=== PATIENT | male | born 1955 | race American Indian/Alaskan Native ===

== ENCOUNTER 2018-03-28 10:21 | Day surgery (SDC) | payer BC ==
[2018-03-28] MEDS ORDERED: WATER FOR IRRIG STERILE ONE (10:35)
[2018-03-28] MEDS ORDERED: WATER FOR IRRIG STERILE IR ONE (10:35)
--- NOTE | 2018-03-28 11:25 | Anesthesia Day of Surgery ---
Anesthesia Day of Surgery - Day of Surgery Patient Examined: Yes Patient H&P Reviewed: Yes Patient is NPO: Yes Beta Blockers: No Cardiac Clearance: No Pulmonary Clearance: No
--- NOTE | 2018-03-28 11:25 | Anesthesia Consultation ---
Anesthesia Consult and Med Hx - Airway Anesthetic Teeth Evaluation: Good ROM Head & Neck: Adequate Mental/Hyoid Distance: Adequate Mallampati Class: Class III Intubation Access Assessment: Probably Good - Pulmonary Exam CTA: Yes - Cardiac Exam Cardiac Exam: No Murmur - Pre-Operative Health Status ASA Pre-Surgery Classification: ASA2 Proposed Anesthetic Plan: MAC - Pulmonary Hx Smoking: No Hx Asthma: No Hx Respiratory Symptoms: No SOB: No COPD: No Home Oxygen Therapy: No Hx Pneumonia: No Hx Sleep Apnea: Yes - Cardiovascular System Hx Hypertension: No Hx Coronary Artery Disease: No Hx Heart Attack/AMI: No Hx Angina: No Hx Percutaneous Transluminal Coronary Angioplasty (PTCA): No Hx Cardia Arrhythmia: No Hx Pacemaker: No Hx Internal Defibrillator: No Hx Valvular Heart Disease: No Hx Heart Murmur: No Hx Peripheral Vascular Disease: No - Central Nervous System Hx Neuromuscular Disorder: No Hx Seizures: No CVA: No Hx Back Pain: No Hx Psychiatric Problems: No - Endocrine Hx Renal Disease: No Hx End Stage Renal Disease: No Hx Cirrhosis: No Hx Liver Disease: No Hx Insulin Dependent Diabetes: No Hx Non-Insulin Dependent Diabetes: No Hx Thyroid Disease: No Hx Hypothyroidism: No Hx Hyperthyroidism: No - Other Systems Hx Alcohol Use: No Hx Substance Use: No Hx Cancer: Yes Hx Obesity: No
[2018-03-28] MEDS ORDERED: DIPRIVAN 10 MG/ML IV ONE ×2 (11:57)
[2018-03-28] MEDS ORDERED: XYLOCAINE 2% INFILTRATI ONE (11:57)
[2018-03-28] MEDS ORDERED: NACL 0.9% 1000 ML 1,000 ML IV SCH (12:00)
--- NOTE | 2018-03-28 12:20 | History and Physical Report ---
HISTORY OF PRESENT ILLNESS: This is a 62-year-old -[place] gentleman with a prior history of prostate cancer, strong family history of cancer. The patient's father had brain tumor, mother had lung cancer that has metastasized, sister had small bowel cancer. He has been sent here because of prior history of colon polyp and strong family history of cancer and prior history of colon polyp repeat colonoscopy to be done. In addition, he is status post cholecystectomy. He had been treated with gentamicin in the past that may have affected his balance. His vitamin B12 will also be checked to make sure that there is not any relationship with his difficulty with balance secondary to vitamin B12 deficiency. ALLERGIES: He has a history of allergy to VIOXX. MEDICATIONS: No medications. He is not on any medications at present. SOCIAL HISTORY: He does not smoke, does not drink alcohol. No cardiac issues. No flu shot. PHYSICAL EXAMINATION: VITAL SIGNS: He is afebrile. Blood pressure 130/80, pulse 80. Height 6 feet 1 inch, weight is 211 pounds. HEENT: Shows no JVD. LUNGS: Clear to auscultation. CARDIOVASCULAR: Normal. ABDOMEN: Soft. Bowel sounds present. NEUROLOGIC: He is alert and oriented. ASSESSMENT: History of colon polyps, history of prostate cancer, family history of cancer. Mother had lung cancer that had metastasized. Father had brain tumor. Sister had small bowel cancer. Status post cholecystectomy. PLAN: To do a colonoscopy at [facility] on 03/28/2018. The patient's vitamin B12 level will also be checked. JOB# [id number] PEDRO/STEFANIE
--- NOTE | 2018-03-28 12:30 | Procedure Note ---
Date of procedure: 03/28/18 Pre-op diagnosis: H/O Colon Polyp/ F/H/O Cancer Post-op diagnosis: other (No Colon Polyps noted/ Moderate,Diverticular Disease ( most pronounced in the left Colon)/ Mild to Moderate Internal Hemorrhoid) Anesthesia: MAC Surgeon: MANUEL WYNN Estimated blood loss: none Pathology: none Condition: stable Disposition: same day (Encourage fiber intake and follow up in 1 to 2 weeks ).)
--- NOTE | 2018-03-28 12:40 | Operative Report ---
NAME OF PROCEDURE: Colonoscopy. INDICATIONS: This is a 62-year-old -[place] gentleman with a history of prostate cancer and strong family history of cancer. The patient's father had brain tumor. Mother had lung cancer that had metastasized and sister had small bowel cancer. He has prior history of colon polyps. Colonoscopy was done to make sure that there was not any recurrence of any polyps. DESCRIPTION OF PROCEDURE: Procedure was done after getting informed consent with MAC anesthesia. Initial rectal exam was unremarkable. Instrument was passed through the rectum onto the cecum, which was identified with ileocecal valve and appendiceal orifice. Visualization was fair to good. Cecum, ascending colon, transverse colon showed normal mucosa. There were a few scattered diverticula noted in the transverse colon and moderate diverticular disease, some of which were deep in the left colon. The rectum showed mild to moderate internal hemorrhoid on the retroverted view. There were no biopsies done. No bleeding associated with the procedure. No complications associated with the procedure. IMPRESSION: Prior history of colon polyps, no colon polyps now. Moderate diverticular disease, most pronounced in the left colon, mild to moderate internal hemorrhoid. Plan is to encourage the patient to take fiber supplements. Resume home medication. Vitamin B12 level will be checked because of the patient's problems with his balance. The patient will be asked to follow up in the office in 1-2 weeks' time if possible. Nurse Kimberly Fermin was in the room throughout the entirety of the procedure. JOB# [id number] PEDRO/STEFANIE TOVAR
[2018-03-28 14:06] VITALS: BP 136/95
--- NOTE | 2018-03-28 15:25 | Post Anesthesia Evaluation ---
- Post Anesthesia Evaluation Patient Participated: Yes Airway Patent: Yes Stable Respiratory Function: Yes Nausea/Vomiting: No Temp > 96.8F: Yes Pain Manageable: Yes Adequeate Hydration: Yes Anesthesia Complications: No
== END 2018-03-28 10:22 | disposition home or self-care (01) ==
LOC: GIO 10:21
DX: Z12.11 Encounter for screening for malignant neoplasm of colon (principal); K64.8 Other hemorrhoids; G47.30 Sleep apnea, unspecified; Z91.013 Allergy to seafood; Z88.8 Allergy status to other drugs, medicaments and biological substances; Z99.89 Dependence on other enabling machines and devices; Z85.46 Personal history of malignant neoplasm of prostate; Z86.010 Personal history of colon polyps; Z90.49 Acquired absence of other specified parts of digestive tract; Z98.890 Other specified postprocedural states; Z80.1 Family history of malignant neoplasm of trachea, bronchus and lung; Z80.0 Family history of malignant neoplasm of digestive organs
CPT/HCPCS: 36415; 45378; 82607; J2704; J7030